=== PATIENT | female | born 1965 | race Asian ===

== ENCOUNTER 2023-04-26 00:13 | Emergency (ER) | payer OTHER ==
[~2023-04-26] VITALS: Ht 172.7 cm; Wt 75.0 kg
[2023-04-26 00:44] VITALS: BP 101/52; PULSE 80; RESP 18; TEMP 98; O2SAT 96
[2023-04-26 01:42] LABS: CLARITY URINE TURBID (CLEAR); COLOR URINE YELLOW (YELLOW); GLUCOSE URINE NEGATIVE (NEGATIVE); KETONES URINE NEGATIVE (NEGATIVE); LEUKOCYTE ESTERASE URINE 3+ (NEGATIVE); NITRITE URINE NEGATIVE (NEGATIVE); OCCULT BLOOD URINE 3+ (NEGATIVE); PH URINE 5.5 (4.5-8.0); PROTEIN URINE 1+ (NEGATIVE); SPECIFIC GRAVITY URINE 1.021 (1.005-1.030); UROBILINOGEN URINE 0.2 E.U./dL (0.2-1.0)
[2023-04-26 01:45] LABS: YEAST URINE NONE SEEN
[2023-04-26 01:56] LABS: WBC URINE TNTC /hpf (0-2)
[2023-04-26 01:58] LABS: SQUAMOUS EPITHELIAL CELL URINE FEW /lpf (RARE/1+)
[2023-04-26 02:01] LABS: RBC URINE 50-100 /hpf (0-2)
[2023-04-26 02:02] LABS: BACTERIA URINE 1+
[2023-04-26] MEDS ORDERED: LIDOCAINE HCL/PF 1% 10 MG/ML 5ML VIAL INFIL ONE (02:30)
[2023-04-26] MEDS ORDERED: CEFTRIAXONE SODIUM 1 G/VIAL IM ONE (02:30)
[2023-04-26] MEDS ORDERED: ACET-2708 PO (02:33)
[2023-04-26] MEDS ORDERED: SULF1TAB48 MT (02:33)
== END 2023-04-26 03:17 | disposition home or self-care (01) ==
LOC: ER 00:13
DX: N39.0 Urinary tract infection, site not specified (principal)
CPT/HCPCS: 81003; 87086; 87186; 96372; 99283; J0696; J3490; Z7610